=== PATIENT | male | born 1970 | race Caucasian/White ===

== ENCOUNTER 2019-03-12 10:39 | Emergency (ER) | payer MEDICAID ==
[~2019-03-12] VITALS: Ht 162.6 cm; Wt 74.4 kg
[2019-03-12 10:48] VITALS: Ht 162.6 cm; Wt 74.4 kg
[2019-03-12 11:12] LABS: BASOPHIL % 0.7 % (0-2); PLATELET COUNT 376 x10^3mcL (130-400); RED CELL DISTRIBUTION WIDTH 13.7 % (11.5-14.5)
[2019-03-12 11:26] LABS: CALCIUM 9.3 mg/dL (8.5-10.1); CARBON DIOXIDE 30.2 mmol/L (21-32); CHLORIDE SERUM 105 mmol/L (98-107); CREATININE SERUM 0.8 mg/dL (0.7-1.3); GFR1 > 60 mL/min; GLUCOSE SERUM 106 mg/dL (74-106); POTASSIUM SERUM 3.8 mmol/L (3.5-5.1); SODIUM SERUM 145 mmol/L (136-145)
[2019-03-12 11:32] VITALS: BP 138/90
[2019-03-12 11:33] LABS: ALKALINE PHOSPHATASE 72 U/L (46-116); ALT/SGPT 55 U/L (16-63); AST/SGOT 54 U/L (15-37); BILIRUBIN TOTAL 0.3 mg/dL (0.20-1.00); TOTAL PROTEIN, SERUM 8.3 g/dL (6.4-8.2)
== END 2019-03-12 12:10 | disposition home or self-care (01) ==
LOC: ED 10:39
PROVIDERS: Emergency Medicine
DX: F10.229 Alcohol dependence with intoxication, unspecified (principal)
CPT/HCPCS: 36415; G0480

== ENCOUNTER 2019-03-13 10:37 | Emergency (ER) | payer MEDICAID ==
[~2019-03-13] VITALS: Ht 162.6 cm; Wt 73.7 kg
[2019-03-13 10:43] VITALS: Ht 162.6 cm; Wt 73.7 kg
[2019-03-13 12:52] VITALS: BP 156/98
== END 2019-03-13 12:52 | disposition home or self-care (01) ==
LOC: ED 10:37
DX: I10 Essential (primary) hypertension (principal); F10.20 Alcohol dependence, uncomplicated
CPT/HCPCS: 82962; J7030